=== PATIENT | male | born 1960 | race Caucasian/White ===

== ENCOUNTER 2018-06-28 16:31 | Emergency (ER) | payer OTHER ==
[2018-06-28 16:58] VITALS: BP 137/93
--- NOTE | 2018-06-28 17:02 | EDPHY ---
H & P Time Seen by Provider: 06/28/18 16:35 HPI/ROS: This patient complains of an insect bite or sting to his right index finger that occurred yesterday while doing yd work. He explains that he was not wearing gloves and listed a large pile of branches any suddenly felt a sharp pain to the middle phalanx region of the 2nd finger on his right hand-dorsal aspect. Since then he has developed redness to most of the 2nd finger with mild achy sensation and swelling to the PIP joint. He also had slight itching yesterday that he states has resolved today. 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 ROS: Constitutional: No fevers Pulmonary: No wheezing or shortness of breath Cardiovascular: No lightheadedness GI: No nausea vomiting Integumentary: No other skin rash or complaints. 5 point review of symptoms is performed and otherwise negative with exception of pertinent positives and negatives listed in HPI and ROS Smoking Status: Never smoked Physical Exam: Physical Exam Vital signs are normal. General: No acute distress HEENT: No angioedema or other abnormalities are noted. Eyes: Pupils equal and react to light. Extraocular motions are intact. Lungs: No respiratory distress. Cardiac: Brisk capillary refill is intact throughout. Pulses are 2+ and symmetric in the affected extremity. Skin: No rash or pallor except finger is seen below. Right hand: Patient has erythema and swelling to the dorsal aspect of the finger overriding the middle phalanx with no stinger visualized and close inspection positive warmth to touch and confluent erythema extends proximally to the hand. He has slight swelling of the PIP joint but no fluctuance. No proximal lymphangitic streaking is present. Neuro: Alert and oriented x3 with no sensorimotor deficits in the affected extremity. Initial differential diagnosis: Insect bite or sting with associated cellulitis , localized allergic reaction, insect envenomation with localized changes. Constitutional: Initial Vital Signs Temperature (C) 36.3 C 06/28/18 16:37 Heart Rate 52 L 06/28/18 16:37 Respiratory Rate 16 06/28/18 16:37 Blood Pressure 137/93 H 06/28/18 16:37 O2 Sat (%) 97 06/28/18 16:37 O2 Delivery Mode Room Air Allergies/Adverse Reactions: No Known Allergies Allergy (Unverified 06/28/18 16:36) Home Medications: Medication Instructions Recorded Cephalexin [Keflex (*)] 500 mg PO TID #30 cap 06/28/18 Cephalexin [Keflex (*)] 500 mg PO TID #30 cap 06/28/18 MDM/Departure - [facility] ED Course/Re-evaluation: Discussion: Patient with insect bite with localized cellulitis clinically without evidence of proximal tenosynovitis, sepsis or other red flag findings. Will start him on Keflex, antihistamines and NSAIDs. - Depart Disposition: Home, Routine, Self-Care Clinical Impression: Insect bite, nonvenomous, of finger, infected Qualifiers: Encounter type: initial encounter Qualified Code(s): S60.469A - Insect bite ( nonvenomous) of unspecified finger, initial encounter Condition: Good Instructions: Cellulitis (ED), Insect Bite or Sting (ED) Additional Instructions: Diagnosis: Insect bite (or sting) with cellulitis of finger Plan: Clean the finger daily with warm soapy water Keflex antibiotic Loratadine or other nonsedating antihistamine or Benadryl antihistamine if you have itching in addition. Return for any significant worsening despite the treatment plan Prescriptions: Cephalexin [Keflex (*)] 500 mg PO TID #30 cap Cephalexin [Keflex (*)] 500 mg PO TID #30 cap Referrals: Rui Graff MD [Primary Care Provider] - As per Instructions
== END 2018-06-28 17:12 | disposition home or self-care (01) ==
LOC: CED 16:31
DX: S60.460A Insect bite (nonvenomous) of right index finger, initial encounter (principal); L03.011 Cellulitis of right finger
CPT/HCPCS: 99283-ER

== ENCOUNTER → 2018-09-17 | Outpatient (CLI) | payer OTHER | LOC: CIMAGING 09:23 ==